=== PATIENT | female | born 1955 | race Caucasian/White ===

== ENCOUNTER → 2018-04-02 12:41 | Outpatient (CLI) | payer OTHER, MEDICAID, SELFPAY ==
--- NOTE | 2018-04-02 | DI.RAD.S_ITS ---
PROCEDURE: XR LUMBAR SPINE 2-3V INDICATIONS: PAIN TECHNIQUE: 3 views of the lumbar spine were acquired. COMPARISON: None. FINDINGS: Bones: 5 [id number] vertebrae are present. There is normal bony alignment. Degenerative endplate changes throughout lumbar spine is seen more prominent at L4-5 and L5-S1 levels. Bilateral facet arthrosis also seen. No vertebral body compression fractures. No suspicious bony lesions. Soft tissues: Overlying bowel gas pattern is normal. No suspicious soft tissue calcifications. IMPRESSION: Degenerative disc disease throughout lumbar spine. No acute compression fracture or traumatic spondylolisthesis. Dictated by: Shaggy Loco M.D. on 04/02/2018 at 14:38 Approved by: Shaggy Loco M.D. on 04/02/2018 at 14:46
--- NOTE | 2018-04-02 | DI.RAD.S_ITS ---
PROCEDURE: XR WRIST RT MIN 3V INDICATIONS: ,PAIN IN RIGHT WRIST TECHNIQUE: 4 views of the wrist were acquired. COMPARISON: None. FINDINGS: Bones: Mild osteoarthritic changes are noted throughout wrist joints more prominent involving radiocarpal joint. Subchondral cyst formation in ulnar head and proximal lunate are seen. Intraosseous cyst in capitate and hamate are also noted. No fractures or dislocations. No suspicious bony lesions. Scaphoid view: Scaphoid is intact. No evidence of avascular necrosis. Soft tissues: No suspicious soft tissue calcifications. IMPRESSION: [id number] osteoarthritic changes throughout wrist joints as above. Dictated by: Shaggy Loco M.D. on 04/02/2018 at 14:36 Approved by: Shaggy Loco M.D. on 04/02/2018 at 14:38
== END ==
PROVIDERS: Visit Provider Family Medicine
DX: M79.605 Pain in left leg (principal); M25.531 Pain in right wrist; M51.36 Other intervertebral disc degeneration, lumbar region; M51.37 Other intervertebral disc degeneration, lumbosacral region; M19.031 Primary osteoarthritis, right wrist
CPT/HCPCS: 72100; 73110

== ENCOUNTER → 2018-06-18 12:00 | Outpatient (CLI) | payer OTHER, MEDICAID, SELFPAY ==
--- NOTE | 2018-06-18 | DI.RAD.S_ITS ---
PROCEDURE: XR HIP W PEL IF DONE LT 2V INDICATIONS: ABDOMINAL PAIN AND PAIN IN LEFT LEG TECHNIQUE: AP pelvis with lateral view(s) of the left hip(s). COMPARISON: None. FINDINGS: Bones: No fractures or dislocations. Pelvic ring appears intact. No suspicious bony lesions. Moderate bilateral hip joint degeneration, left slightly worse than right. Degenerative sclerosis present at the pubic symphysis. Soft tissues: The visualized bowel gas pattern is normal. No suspicious soft tissue calcifications. IMPRESSION: Bilateral moderate hip joint degeneration, left greater than right. Dictated by: Charbel Mcfarlane M.D. on 06/18/2018 at 14:32 Approved by: Charbel Mcfarlane M.D. on 06/18/2018 at 14:34
--- NOTE | 2018-06-18 | DI.RAD.S_ITS ---
PROCEDURE: XR KUB INDICATIONS: ABDOMINAL PAIN AND PAIN IN LEFT LEG TECHNIQUE: One view of the abdomen acquired. COMPARISON: None. FINDINGS: Surgical changes and devices: None. Bowel: Bowel gas pattern is normal. Moderate diffuse stool. No pathologically dilated bowel loops identified Soft tissues: No suspicious abdominal calcifications. Visualized solid organ contours appear normal in size. Bones: No suspicious bony lesions. Moderate bilateral hip degeneration. Multilevel spondylosis IMPRESSION: No specific evidence of bowel obstruction seen at this time although if the patient's symptoms do not improve, continued surveillance with abdominal series radiographs could be performed. Moderate stool Dictated by: Charbel Mcfarlane M.D. on 06/18/2018 at 14:34 Approved by: Charbel Mcfarlane M.D. on 06/18/2018 at 14:36
== END ==
PROVIDERS: Visit Provider Family Medicine
DX: R10.9 Unspecified abdominal pain (principal); M79.605 Pain in left leg; M16.0 Bilateral primary osteoarthritis of hip
CPT/HCPCS: 73502; 74018

== ENCOUNTER → 2018-08-16 10:53 | Outpatient (CLI) | payer OTHER, MEDICAID, SELFPAY ==
--- NOTE | 2018-08-16 | DI.US.S_ITS ---
PROCEDURE: US PELVIC COMPLETE INDICATIONS: ABDOMINAL PAIN TECHNIQUE: Real-time scanning was performed of the pelvic organs, with image documentation. Additional endovaginal scanning was necessary due to incomplete visualization of the adnexal and endometrial structures by transabdominal scanning. COMPARISON: None. FINDINGS: Transabdominal scanning: Limited scanning through the kidneys shows no hydronephrosis. No pathologic free abdominal or pelvic fluid. Endovaginal scanning: Uterus: Uterus is normal in size at 8.2 x 1.8 x 3.6 cm. The endometrium measures 3 mm mm in combined thickness. Ovaries: Normal ovaries bilaterally measuring 2.1 x 0.8 x 1.1 cm on the right and 1.6 x 0.6 x 0.8 cm on the left. No adnexal masses. Probable fat containing left inguinal hernia. IMPRESSION: Probable fat containing left inguinal hernia. If surgical intervention is planned, Recommend CT for confirmation. Dictated by: Kasi BARLOW Interpreted: Shaggy Loco MD on 08/16/2018 at 14:06 Approved by: Shaggy Loco M.D. on 08/16/2018 at 14:44
--- NOTE | 2018-08-16 | DI.US.S_ITS ---
PROCEDURE: US ABDOMEN COMPLETE INDICATIONS: ABDOMINAL PAIN TECHNIQUE: Real-time scanning was performed of the abdominal and retroperitoneal organs, with image documentation. COMPARISON: [facility], US, US PELVIC COMPLETE, 08/16/2018, 12:19. FINDINGS: Liver: Liver is normal in size and homogeneous in echotexture. Cluster of cysts within the left hepatic lobe measuring 1.9 x 1.9 x 1.0 cm. Gallbladder: No gallstones identified. Normal gallbladder wall. No pericholecystic fluid. Negative sonographic Navarrete sign. Biliary ducts: Intrahepatic bile ducts are non-dilated. Extrahepatic bile duct caliber measures 3.6 mm. Normal is 6-7 mm or less in diameter, or 10 mm or less post-cholecystectomy. Pancreas: Visualized portions of the pancreas are sonographically normal. Spleen: Spleen is normal in size and homogeneous in echotexture. Kidneys: Kidneys are normal in size and echotexture. Right kidney measures 10.2 cm long; left kidney measures 9.4 cm long. Mild prominence of the right renal pelvis. A 6 mm nonobstructing right midpole renal calcification. No solid masses. Aorta: Visualized aorta is normal in caliber at less than 3 cm. Iliacs: Proximal common iliac arteries are normal in caliber at less than 2.5 cm. IVC: Intrahepatic inferior vena cava is patent. Miscellaneous: No free abdominal fluid. IMPRESSION: 1. No source for abdominal pain identified. Dictated by: Kasi Red [facility] Interpreted: Shaggy Loco MD on 08/16/2018 at 14:14 Approved by: Shaggy Loco M.D. on 08/16/2018 at 14:44
== END ==
PROVIDERS: PCP Family Medicine; Visit Provider Family Medicine
DX: R10.9 Unspecified abdominal pain (principal); K76.89 Other specified diseases of liver; N20.0 Calculus of kidney
CPT/HCPCS: 76700; 76856

== ENCOUNTER → 2018-11-19 07:54 | Outpatient (CLI) | payer OTHER, MEDICAID, SELFPAY ==
--- NOTE | 2018-11-19 08:33 | DI.CT.S_ITS ---
PROCEDURE: CT PELVIS W CON INDICATIONS: bulge/mass left medial thigh.U/S ?inguinal hernia TECHNIQUE: After the administration of oral contrast and intravenous contrast, 5 mm thick sections acquired from the iliac crests to the symphysis. 5 mm thick coronal and sagittal reformats were acquired. For radiation dose reduction, the following was used: automated exposure control, adjustment of mA and/or kV according to patient size. COMPARISON: [facility], , PELVIC COMPLETE, 08/16/2018, 12:19. FINDINGS: Image quality: Excellent. Peritoneum and bowel: Contrast enhanced bowel loops demonstrate normal wall thickness and caliber. The appendix is thin walled and gas filled. No free fluid or air. Genitourinary: The bladder is partially fluid filled and the wall is circumferentially thickened. Nodes and vessels: No iliac, pelvic, or inguinal adenopathy. Iliac vessels demonstrate normal size and enhancement. Bones: No suspicious bony lesions. Moderate degenerative change is present at the bilateral hip joints. Miscellaneous: There is a small left fat-containing indirect hernia (series 2, image 35). IMPRESSION: 1. Small fat-containing indirect left inguinal hernia. 2. Normal appendix. 3. Circumferential wall thickening of the partially distended bladder. This finding can be associated with cystitis or neurogenic bladder. These correlate with clinical symptoms and urinalysis. Dictated by: Charline Gar M.D. on 11/19/2018 at 10:17 Approved by: Charline Gar M.D. on 11/19/2018 at 10:20
[2018-11-19 08:34] LABS: BUN Creatinine Ratio 24.3 (6-22); Blood Urea Nitrogen 17 mg/dL (7-17); Estimated Glomerular Filt Rate > 60.0 mL/min (>60)
== END ==
PROVIDERS: PCP Family Medicine; Visit Provider Specialist
DX: K40.90 Unilateral inguinal hernia, without obstruction or gangrene, not specified as recurrent (principal); R22.42 Localized swelling, mass and lump, left lower limb
CPT/HCPCS: 36415; 72193; 82565; 84520; Q9967

== ENCOUNTER 2018-12-16 12:03 | Day surgery (SDC) | payer OTHER, MEDICAID, SELFPAY ==
[2018-12-12 07:19] VITALS: BMI 25.7
[2018-12-16] VITALS (7 sets, daily range): BP systolic 112–144; BP diastolic 53–75; PULSE 58–66; RESP 10–17; TEMP 36–36.5; O2SAT 93–100; BMI 25.4
[2018-12-16] MEDS: LACTATED RINGERS 1,000 ML 42 ML IV (12:38)
--- NOTE | 2018-12-16 13:51 | PM.PREOP ---
Pre-operative Note Interval Note History & Physical reviewed/Exam performed by Physician: Yes Changes to H&P: No H&P completed within 30 days and has changed as indicated here:: See note from 11/26 for H&P
[2018-12-16] MEDS: CEFAZOLIN 2 GM/100 ML FROZ.PIGGY IV (14:03)
--- NOTE | 2018-12-16 14:25 | SUR.OPER ---
Supine on padded OR bed, head on pillow, arms secured on padded arm boards at <90 degrees abduction, legs uncrossed, safety belt at thigh, tape over blanket over lower legs.
[2018-12-16] MEDS: BUPIVACAINE 0.5% (PF) VIAL 30 ML INJ (14:30)
--- NOTE | 2018-12-16 15:21 | SUR.PHASEI ---
Assumed care during break period. Patient arouses to voice and spontaneously. Denied pain, returned to sleep. Resp unlabored.
[2018-12-16] MEDS: fentaNYL 100 MCG/2 ML INJ 50 MCG IV (15:27)
--- NOTE | 2018-12-16 15:30 | SUR.PHASEI ---
HOB elevated, food given in preparation for oral pain med. - to follow IV med. Pt. calm, relaxed, no grimace, moaning, other non-verbal signs of pain.
--- NOTE | 2018-12-16 15:37 | PM.OP.1 ---
Operative Date/Time/Diagnoses Date of procedure: 12/16/18 Time of procedure: 15:37 Pre-op diagnosis: LEFT INGUINAL HERNIA REDUCIBLE Post-op diagnosis: same Procedure & Clinicians Procedure: Repair with plug and patch technique Same procedure as scheduled: Yes Indications: Symptomatic hernia Surgeon: John Pereyra Click Yes if Unassisted: Yes Anesthesia Type: General Operative Notes Findings: Small defect containing fat Closure Type: primary Specimen(s): none sent Prosthetic devices, grafts, tissues, transplants, or devices: Mesh Estimated Blood Loss (mL): 5 Blood products transfused: none Procedure in detail: The patient was placed supine on the operating room table and underwent general LMA anesthesia. SHe was prepped and draped in the usual fashion. A transverse incision was made overlying the internal ring and carried down to the level of the external oblique. The external oblique was opened parallel with its fibers through the external ring. . The floor was examined and was found to be attenuated in a discrete area. The ligament was detached from the pubic tubercle using cautery. There was a hernia within it and this consisted of fat. The sac was opened the fat reduced and the hernia sac ligated with 2 0 silk. Small plug was placed in the defect and reduced to the hernia sac. Was tacked into place with interrupted 0 Ethibond suture.. A patch was placed across the floor and tacked at the pubic tubercle, the posterior lamella of the anterior rectus sheath, the ilioinguinal ligament, and superior lateral to the cord. The opening in the mesh for the cord was closed as necessary . Sutures of 0 Tycron were used to secure the mesh. The external oblique was closed with a running 3 0 Polysorb obliterating the external ring. The subcu was closed with interrupted 3 0 Polysorb. The skin was closed with a running 4 0 Polysorb subcuticular stitch and Steri-Strips. Dressing was applied, the patient was awakened, and the patient was taken to the recovery area in good condition. Complications: none Condition: stable Disposition: PACU
[2018-12-16] MEDS: HYDROCODONE/ACET 5/325 TABLET 1 TAB PO (15:40)
--- NOTE | 2018-12-16 15:41 | SUR.PHASEI ---
PO rx given, care turned over to Omar Chatterjee RN
== END 2018-12-16 16:10 | disposition home or self-care (01) ==
PROVIDERS: PCP Family Medicine; Visit Provider Specialist
PROC: (CPT 49505; principal; 2018-12-16 13:30)
DX: K40.90 Unilateral inguinal hernia, without obstruction or gangrene, not specified as recurrent (principal)
CPT/HCPCS: 49505; C1781; J0690; J1100; J2405; J2704; J3010

== ENCOUNTER → 2019-06-09 08:49 | Outpatient (CLI) | payer MEDICARE, OTHER, MEDICAID, SELFPAY ==
[2019-06-09 11:16] LABS: Add Manual Diff / Slide Review NO; Basophils Absolute Auto 0 /uL (0-100); Basophils Percent Auto 0.3 % (0-2); Eosinophils Absolute Auto 100 /uL (0-450); Eosinophils Percent Auto 1.7 % (2-4); Hematocrit 38.4 % (36-46); Lymphocytes Absolute Auto 2000 /uL (1100-4500); Lymphocytes Percent Auto 28.4 % (25-40); Mean Corpuscular HGB Conc 33.8 % (30-36); Mean Corpuscular Hemoglobin 31.9 PG (26-34); Mean Corpuscular Volume 94.4 fL (80-100); Monocytes Absolute Auto 600 /uL (0-900); Monocytes Percent Auto 8.3 % (3-14); Neutrophils Absolute Auto 4400 /uL (1500-7000); Neutrophils Percent Auto 61.3 % (50-75); Platelet Count 263 X10^3/uL (150-400); Red Blood Cell Count 4.07 X10^6/uL (4.0-5.2); Red Cell Distribution Width 13.5 % (11.6-14.8); White Blood Cell Count 7.1 X10^3/uL (4.5-11.0)
[2019-06-09 11:31] LABS: Alanine Aminotransferase 16 IU/L (<35); Albumin 4.3 g/dL (3.5-5.0); Albumin Globulin Ratio 1.5 (1.0-2.8); Alkaline Phosphatase 75 U/L (38-126); Aspartate Aminotransferase 32 IU/L (14-36); BUN Creatinine Ratio 21.3 (6-22); Bilirubin Total 0.5 mg/dL (0.2-1.3); Blood Urea Nitrogen 17 mg/dL (7-17); Calcium 9.3 mg/dL (8.4-10.2); Carbon Dioxide 27 mmol/L (22-32); Chloride 103 mmol/L (98-107); Cholesterol 238 mg/dL (140-199); Estimated Glomerular Filt Rate > 60.0 mL/min (>60); Globulin 2.9 g/dL (1.7-4.1); Glucose 87 mg/dL (80-110); HDL Cholesterol 91 mg/dL (40-60); HEMOLYSIS < 15 (0-50); LDL Cholesterol Calculated 136 mg/dL (<100); Potassium 4.1 mmol/L (3.4-5.1); Sodium 137 mmol/L (137-145); Total Protein 7.2 g/dL (6.3-8.2); Triglycerides 56 mg/dL (35-150)
[2019-06-09 11:35] LABS: Hemoglobin A1C% w Est Avg Glu 5.3 % (4.0-6.0)
[2019-06-09 12:43] LABS: Thyroid Stimulating Hormone 0.71 uIU/mL (0.47-4.68)
== END ==
PROVIDERS: PCP Family Medicine; Referring Provider Family Medicine; Visit Provider Family Medicine
DX: I83.93 Asymptomatic varicose veins of bilateral lower extremities (principal); Z79.899 Other long term (current) drug therapy; M85.80 Other specified disorders of bone density and structure, unspecified site; R10.2 Pelvic and perineal pain; F33.1 Major depressive disorder, recurrent, moderate
CPT/HCPCS: 36415; 80053; 80061; 83036; 84443; 85025

== ENCOUNTER → 2019-06-10 11:55 | Outpatient (CLI) | payer MEDICARE, OTHER, MEDICAID, SELFPAY | PROVIDERS: PCP Family Medicine; Referring Provider Family Medicine; Visit Provider Family Medicine | DX: M85.852 Other specified disorders of bone density and structure, left thigh (principal); Z78.0 Asymptomatic menopausal state | CPT/HCPCS: 77080 ==

== ENCOUNTER → 2022-01-04 09:32 | Outpatient (CLI) | payer MEDICARE, OTHER, MEDICAID, SELFPAY | PROVIDERS: PCP Family Medicine; Referring Provider Family Medicine; Visit Provider Family Medicine | DX: N95.9 Unspecified menopausal and perimenopausal disorder (principal); M85.89 Other specified disorders of bone density and structure, multiple sites | CPT/HCPCS: 77080 ==